=== PATIENT | female | born 1985 | race American Indian/Alaskan Native ===

== ENCOUNTER 2017-05-05 17:51 | Emergency (ER) | payer MEDICAID, OTHER ==
[2017-05-05 18:04] VITALS: BP 133/88
[2017-05-05] MEDS ORDERED: ULTRAM PO ONE (19:22)
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
== END 2017-05-05 21:12 | disposition home or self-care (01) ==
LOC: ED 17:51
DX: S16.1XXA Strain of muscle, fascia and tendon at neck level, initial encounter (principal); S29.019A Strain of muscle and tendon of unspecified wall of thorax, initial encounter; V49.49XA Driver injured in collision with other motor vehicles in traffic accident, initial encounter; Y93.89 Activity, other specified; Y92.89 Other specified places as the place of occurrence of the external cause; Y99.8 Other external cause status
CPT/HCPCS: 72040; 72070